=== PATIENT | female | born 1975 | race Caucasian/White ===

== ENCOUNTER 2020-03-18 12:36 | Outpatient (REF) | payer OTHER, SELFPAY ==
[2020-03-18 12:53] LABS: COVID-19 Test Negative (Negative)
== END 2020-03-18 12:37 | disposition home or self-care (01) ==
LOC: HO.LAB 12:36
PROVIDERS: Visit Provider Internal Medicine
DX: Z20.828 Contact with and (suspected) exposure to other viral communicable diseases (principal)
CPT/HCPCS: 87635

== ENCOUNTER 2020-03-26 07:08 | Outpatient (REF) | payer OTHER, SELFPAY ==
[2020-03-26 07:50] LABS: COVID-19 Test Negative (Negative)
== END 2020-03-26 07:09 | disposition home or self-care (01) ==
LOC: HO.LAB 07:08
PROVIDERS: Visit Provider Internal Medicine
DX: Z20.828 Contact with and (suspected) exposure to other viral communicable diseases (principal)
CPT/HCPCS: 87635

== ENCOUNTER → 2020-03-28 09:55 | Outpatient (REF) | payer OTHER, SELFPAY | LOC: HO.NUCMED 09:55 | PROVIDERS: PCP Internal Medicine; Visit Provider Podiatrist | DX: Z13.89 Encounter for screening for other disorder (principal) ==

== ENCOUNTER 2020-04-08 14:59 | Outpatient (REF) | payer OTHER, SELFPAY ==
--- NOTE | 2020-04-08 15:00 | MR_ITS ---
EXAMINATION: MR ANKLE WITHOUT CONTRAST, LEFT CLINICAL INFORMATION: Sharp pain in the left heel. Evaluate for stress fracture. COMPARISON: None TECHNIQUE: Multiplanar MR imaging was obtained to the left ankle without contrast on a 1.5 Elvia magnet. FINDINGS: ACHILLES TENDON: No tears or tendinosis. A small 5 x 8 x 3 mm ganglion cyst arises at the lateral margin of the Achilles tendon insertion. OTHER TENDONS: Intact. LIGAMENTS: Intact. BONE AND ARTICULAR CARTILAGE: Normal marrow signal. Cartilage is well preserved. No talar osteochondral lesions. JOINT FLUID AND SOFT TISSUES: No joint effusion. Subcutaneous soft tissues are normal. PLANTAR FASCIA: Borderline thickened (5 mm) with minimal surrounding edema signal. SINUS TARSI AND TARSAL TUNNEL: Normal. MR/MR ankle LT wo con IMPRESSION: Very mild plantar fasciitis at the origin of the central band. No fracture or stress reaction.
== END 2020-04-08 15:00 | disposition home or self-care (01) ==
LOC: HO.MRI 14:59
PROVIDERS: Visit Provider Podiatrist
DX: M79.672 Pain in left foot (principal)
CPT/HCPCS: 73721

== ENCOUNTER 2020-04-26 07:44 | Outpatient (REF) | payer OTHER, SELFPAY ==
[2020-04-26 08:38] LABS: COVID-19 Test Negative (Negative)
== END 2020-04-26 07:45 | disposition home or self-care (01) ==
LOC: HO.EMPCOV 07:44
PROVIDERS: Visit Provider Internal Medicine
DX: Z20.828 Contact with and (suspected) exposure to other viral communicable diseases (principal)
CPT/HCPCS: 87635; C9803

== ENCOUNTER 2020-06-18 12:08 | Outpatient (REF) | payer OTHER, SELFPAY ==
[2020-06-18 12:41] LABS: COVID-19 Test Negative (Negative)
== END 2020-06-18 12:09 | disposition home or self-care (01) ==
LOC: HO.LAB 12:08
PROVIDERS: PCP Internal Medicine; Visit Provider Internal Medicine
DX: Z20.822 Contact with and (suspected) exposure to COVID-19 (principal)
CPT/HCPCS: 36415; 87635

== ENCOUNTER 2020-07-03 13:53 | Outpatient (REF) | payer OTHER, SELFPAY ==
[2020-07-03 14:23] LABS: COVID-19 Test Negative (Negative)
== END 2020-07-03 13:54 | disposition home or self-care (01) ==
LOC: HO.EMPCOV 13:53
PROVIDERS: PCP Internal Medicine; Visit Provider Internal Medicine
DX: Z20.822 Contact with and (suspected) exposure to COVID-19 (principal)
CPT/HCPCS: 36415; 87635

== ENCOUNTER 2021-03-08 15:00 | Outpatient (RCR) | payer OTHER, SELFPAY ==
--- NOTE | 2021-04-04 14:08 | MHC.PT.DC ---
[facility] [place] Office [place] [facility] [place] [facility] [address] Noni Hurley [address] [phone] F: [phone] F: [phone] F: [phone] F: [phone] Physical Therapy Discharge Report Diagnosis: This is a 45 yo female presenting to skilled PT with a script for plantar fasciitis. Date of Surgery: Date of Evaluation: 02/15/21 Date of Discharge: 04/04/21 Treatments to Date: 2 Cancellations to Date: 0 No Shows to Date: 0 Discharge Status: Patient Elected to Stop Discharge Summary: 04/04: Called patient about continuing PT, reports that she is getting another surgery and wants to hold PT. 03/08: swelling not improved with time, ice or elevation. Stim and soft tissue was non productive for decrease in swelling. KT has been helpful. Avoided weight bearing and extreme stretching today and will assess response next session. 02/23: Patient seeing surgeon today after PT. After tx patient reported feeling better. She has a hard time feeling a stretch in the fascia and heel but the best option was on the wedge with a small towel under the toes. Notable atrophy in L gastrocs, provided heel raises for HEP. She would benefit from continued manual work and calf strengthening. This is a 45 yo female presenting to skilled PT with a script for plantar fasciitis. This patient comes to PT s/p surgery on 12/21 on the L PF. Surgery was the Sullivan procedure done by Dr. Farrell ([facility]). She returns to surgeon tomorrow for follow up. Following the surgery was in a walking boot for 2 months (today being the first day out of the boot and in normal shoe). Additionally she wears a splint with ice at night. Patient reporting pain along the 5th met, heel and arch. Her pain is now described as achy, tightness and burning. She has pain at rest and with weightbearing. Prior to surgery she was having ongoing pain for over a year. Assessment reveals pain that ranges up to a 6/10. She demos decreased L ankle ROM, decreased L ankle strength, impaired gait pattern, impaired ankle and forefoot joint mobility, tender to palpate at plantar fascia/arch as well as gross functional decline with weightbearing and walking. She is a good candidate for skilled PT 2x/wk for 5wks. Electronically signed by: Malu Hurt PT Please sign and return to therapist. Thank you for your referral.
== END 2021-04-04 14:08 | disposition home or self-care (01) ==
LOC: HO.PTCHIC 15:00
PROVIDERS: PCP Internal Medicine; Visit Provider Podiatrist
DX: M72.2 Plantar fascial fibromatosis (principal)
CPT/HCPCS: 97014; 97110; 97140; 97161

== ENCOUNTER 2021-05-04 10:21 | Day surgery (SDC) | payer OTHER, SELFPAY ==
[2021-04-25 14:49] VITALS: BMI 30.9
--- NOTE | 2021-05-02 16:53 | HP_ITS ---
DATE OF SERVICE: 05/04/2021 PREOPERATIVE DIAGNOSIS: Plantar fasciitis, left foot. PLANNED PROCEDURE: Endoscopic plantar fasciotomy, left foot. PAST MEDICAL HISTORY: Anxiety disorder; hip, back, and knee pain; cancer; chickenpox; headaches; migraines; hypertension. CURRENT MEDICATIONS: Amlodipine, benazepril, omeprazole. SURGICAL HISTORY: Lumpectomy, hysterectomy, and left [place] plantar fasciotomy on 12/21/2020. FAMILY HISTORY: Diabetes, hypertension. SOCIAL HISTORY: The patient is a current smoker, 5 or less cigarettes a day. Denies any other tobacco use. Relates occasional alcohol use. No illicit drug use. She works at [employer]. ALLERGIES: TO ADVIL, ALEVE, MOTRIN, GABAPENTIN, AND NSAIDS. HOSPITALIZATIONS: Denies. REVIEW OF SYSTEMS: Within normal limits. HISTORY OF PRESENT ILLNESS: This is a 46-year-old female who has had persistent plantar fasciitis noted to the left foot for several months that is unchanged since her surgical procedure of a Ell[place] left foot plantar fasciotomy on 12/21 of this year. The patient has tried multiple conservative as well as surgical interventions including rest, stretching, ice, inner soles orthotics, change in shoes and night splint, cortisone injections, a walking cast boot, massage, and Ell[place] plantar fasciotomy without any significant relief. The patient's states the pain has been getting progressively worse over time. PHYSICAL EXAMINATION: GENERAL: Reveals a pleasant, alert, well-nourished, well-developed, well-hydrated individual who presents with no acute distress. She is oriented x3. NEUROLOGICAL: Exam reveals intact sensorium. Pain sensation is normal. Vibratory sensation is intact. Pinprick sensation is normal. Denies any anesthesias, burning, paresthesias, or tingling. VASCULAR EXAM: DP and PT pulses are 3/4 bilaterally. Capillary refill is immediate to all digits. SKIN: Temperature, elasticity, and turgor is normal. Pigmentation is normal. There is no edema. DERMATOLOGICAL: Exam reveals normal texture, elasticity, and turgor. There are no masses. Interspaces are clear. On inspection of the heel, there is significant pain to the left foot. Pain on palpation to the plantar fascia at the medial and central bands, intrinsic musculature, infracalcaneal bursa, and medial calcaneal tubercle. No pain to the posterior superior heel, Achilles tendon, bursa, sinus tarsi Perineals or with lateral compression of heel, subtalar joint range of motion, calor, or ecchymosis. ORTHOPEDIC EXAM: Muscle strength is 5/5 in a symmetrical fashion. Gait is antalgic. Foot morphology, there is pes planus deformity with decreased ankle joint dorsiflexion range of motion with knee extended of the left foot. PLAN: Surgical procedures to treat the patient's foot problem were discussed. We did review the risks of the procedure as well as not having the procedure, the potential surgical complications which are including, but not limited to pain, swelling, bleeding, scarring, numbness, infection, delayed, nonunion, or nonhealing, failure of the procedure, recurrence, need for further surgery, as well as loss of toe, foot, life, or limb. Discussed use of local and IV anesthesia and usual postoperative course. No guarantees were given. The patient verbally indicated full understanding of the above conversation and any other questions were answered to their satisfaction. We discussed on performing a left foot endoscopic plantar fasciotomy based on the patient's medical compliance, social history, physical exam. We also discussed potential lateral foot pain after the surgery. The patient states that she wants to proceed with surgical treatment. She will obtain preoperative labs as well as medical clearance for surgery and anesthesia. She is aware to stop any and all blood thinners at least 1 week prior to surgery and may not be allowed to drive during a portion of the postoperative period and not to utilize any smoking tobacco products at least 1 month prior and 3 months postoperatively. The patient was given a prescription for narcotic pain medication. She can half fill the prescription and use for shortest duration of time. The patient will be weightbearing as tolerated in a cast boot or surgical shoe and use crutches as needed for any ambulation. Jeanne Rodriguez DPM LP/AMBER / [id number] LUTHER
--- NOTE | 2021-05-03 13:03 | HO.ANESPROP2 ---
Documented by User: Jasmin Francois NP 05/03/21 13:05 HPI - Anesthesia Eval Consult details Narrative: 46yo F for Left Plantar Fasciotomy Endoscopic PCP cleared PMFSH Past Medical History Medical History Anxiety Breast cancer COVID-19 vaccine series completed Elevated cholesterol GERD (gastroesophageal reflux disease) HTN (hypertension) Migraine Surgical History Surgical History History of breast lump/mass excision Hx of appendectomy Hx of breast surgery Hx of hysterectomy Hx of tubal ligation Social History Social History (Updated 05/04/21 @ 11:56 by Dina Francisco MD) Patient Tobacco Use Status: Current everyday Tobacco user Tobacco use type: Cigarette Smoked in Last 30 Days: Yes Use of substances other than those prescribed or required for medical reasons: No Advance Directives: No Advance Directives Information Provided: Yes Advance Directives on File: No Meds Allergies Allergy/AdvReac Type Severity Reaction Status Date / Time atorvastatin Allergy Severe severe Verified 05/04/21 10:45 body aches NSAIDS (Non-Steroidal Allergy Intermediate Hives Verified 05/04/21 10:45 Anti-Inflamma [NSAIDS (NON-STEROIDAL ANTI-INFLAMMA] Home Medications Medication Instructions Recorded Confirmed Last Taken Type amlodipine 5 mg-benazepril 20 mg 1 cap PO DAILY 04/25/21 04/25/21 Unknown History capsule cetirizine 10 mg tablet 10 mg PO DAILY 04/25/21 04/25/21 Unknown History lorazepam 1 mg tablet 1 tab PO BID 04/25/21 04/25/21 Unknown History nicotine 7 mg/24 hr daily 1 patch TOPICAL BEDTIME 04/25/21 04/25/21 Unknown History transdermal patch omeprazole 20 mg capsule,delayed 1 cap PO DAILY 04/25/21 05/04/21 05/04/21 07:00 History release rosuvastatin 5 mg tablet 1 tab PO DAILY 04/25/21 04/25/21 Unknown History tramadol 50 mg tablet 1 tab PO TID PRN 04/25/21 04/25/21 Unknown History varenicline 1 mg tablet 1 mg PO BID 04/25/21 04/25/21 Unknown History Exam Exam Date and Time: May 03, 2021 1303 Height,Weight and Vital Signs: Height 5 ft 8 in Weight 92.1 kg Pertinent Lab Results Pertinent Lab Results: Labs from outside facility 04/2021 CBC and CMP WNL Narrative Narrative: EKG 12/2020 NSR @ 92 ? LAE T wave abnormality (old) Assessment and Plan Assessment Anesthesia Assessment: Chart Reviewed Documented by User: Dina Francisco MD 05/04/21 11:58 PMFSH Past Medical History Medical History Anxiety Breast cancer COVID-19 vaccine series completed Elevated cholesterol GERD (gastroesophageal reflux disease) HTN (hypertension) Migraine Family History Family history of problems with anesthesia: No Surgical History Surgical History History of breast lump/mass excision Hx of appendectomy Hx of breast surgery Hx of hysterectomy Hx of tubal ligation History of Problems with Anesthesia: No Social History Social History (Updated 05/04/21 @ 11:56 by Dina Francisco MD) Patient Tobacco Use Status: Current everyday Tobacco user Tobacco use type: Cigarette Smoked in Last 30 Days: Yes Use of substances other than those prescribed or required for medical reasons: No Advance Directives: No Advance Directives Information Provided: Yes Advance Directives on File: No Meds Allergies Allergy/AdvReac Type Severity Reaction Status Date / Time atorvastatin Allergy Severe severe Verified 05/04/21 10:45 body aches NSAIDS (Non-Steroidal Allergy Intermediate Hives Verified 05/04/21 10:45 Anti-Inflamma [NSAIDS (NON-STEROIDAL ANTI-INFLAMMA] Home Medications Medication Instructions Recorded Confirmed Last Taken Type amlodipine 5 mg-benazepril 20 mg 1 cap PO DAILY 04/25/21 04/25/21 Unknown History capsule cetirizine 10 mg tablet 10 mg PO DAILY 04/25/21 04/25/21 Unknown History lorazepam 1 mg tablet 1 tab PO BID 04/25/21 04/25/21 Unknown History nicotine 7 mg/24 hr daily 1 patch TOPICAL BEDTIME 04/25/21 04/25/21 Unknown History transdermal patch omeprazole 20 mg capsule,delayed 1 cap PO DAILY 04/25/21 05/04/21 05/04/21 07:00 History release rosuvastatin 5 mg tablet 1 tab PO DAILY 04/25/21 04/25/21 Unknown History tramadol 50 mg tablet 1 tab PO TID PRN 04/25/21 04/25/21 Unknown History varenicline 1 mg tablet 1 mg PO BID 04/25/21 04/25/21 Unknown History Exam Height,Weight and Vital Signs: Height 5 ft 8 in Weight 92.1 kg Vital Signs Temp Pulse Resp BP Pulse Ox 05/04/21 10:58 98.7 F 82 16 131/85 99 Airway Mallampati Class: II TM Dist: >3cm Neck ROM: Full Loose/Missing/Broken Teeth: Yes (Extractions) Heart: RRR Lungs: CTAB Assessment and Plan Assessment Anesthesia Assessment: Anesthesia Plan Discussed Final Anesthetic Review Family History of Problems with Anesthesia: No History of Problems with Anesthesia: No NPO: Yes ASA Class: II Final Preanesthetic Review: No Changes in Pt Med Stat, Meds/Allgs Chart Reviewed, Consent Obtained/Reviewed and Anes Risks/Benef Reviewed Patient Risk: Low Procedure Risk: Low Assessment/Block/Sedation in SS: Assess/Block/Sedation-SS Anesthetic Plan Anesthetic Plan: GA Disposition: Standard PACU
[2021-05-04 10:58] VITALS: BP 131/85; PULSE 82; RESP 16; TEMP 37.1; O2SAT 99
[2021-05-04] MEDS: Lactated Ringers 1,000 ML 100 ML IVCONT (11:15)
--- NOTE | 2021-05-04 12:10 | MHC.SHP ---
Pre-Procedural Eval Section A Date of Service: 05/04/21 The patient is an INPATIENT: No Changes since office visit: No Cold of Flu in the past 2 weeks, No New Medical Problems, No Changes in Medication and No Patient answered all questions The History & Physical has been completed within 30 days and I have reviewed it.: Yes Section B Chief Complaint: plantar fascial fibromatosis Allergies: Allergies Allergy/AdvReac Type Severity Reaction Status Date / Time atorvastatin Allergy Severe severe Verified 05/04/21 10:45 body aches NSAIDS (Non-Steroidal Allergy Intermediate Hives Verified 05/04/21 10:45 Anti-Inflamma [NSAIDS (NON-STEROIDAL ANTI-INFLAMMA] Plan I have reviewed the history and physical and performed a pertinent physical examination on my patient. No changes have occurred unless specified.
--- NOTE | 2021-05-04 12:57 | PM.OP ---
Brief Operative Note Date of Service: 05/04/21 Pre-op diagnosis: Plantar fasciitis left foot Post-op diagnosis: same Procedure: Left endoscopic plantar fasciotomy Implants: None Surgeon: Jeanne Rodriguez Anesthesia: GLMA and local Was an Account Support Specialist used for this Procedure?: Yes Account Support Specialist: Ryan Parsons Estimated blood loss (mL): 1 Tourniquet time (min): 12 Condition: stable Disposition: PACU
[2021-05-04 13:05] VITALS: BP 108/67; PULSE 81; RESP 16; TEMP 36.5; O2SAT 97
[2021-05-04 13:24] VITALS: BP 125/79; PULSE 82; RESP 16; TEMP 36.4; O2SAT 97
[2021-05-04] MEDS: Acetaminophen 325 MG TABLET 650 MG PO (13:32)
[2021-05-04] MEDS: oxyCODONE HCl Immed Release 5 MG TABLET PO (13:32)
[2021-05-04 13:43] VITALS: BP 134/76; PULSE 74; RESP 16; TEMP 36.5; O2SAT 97
--- NOTE | 2021-05-09 11:47 | OP_ITS ---
SURGEON: Jeanne Rodriguez DPM PREOPERATIVE DIAGNOSIS: Plantar fasciitis, left foot. POSTOPERATIVE DIAGNOSIS: Plantar fasciitis, left foot. PROCEDURE PERFORMED: Endoscopic left plantar fasciotomy. ESTIMATED BLOOD LOSS: Less than 1 mL. COMPLICATIONS: None. ANESTHESIA: General with local consisting of 2% lidocaine plain and 0.5% Marcaine plain. ASSISTANTS: Ryan Parsons DPM. SPECIMENS: None HEMOSTASIS: Pneumatic ankle tourniquet set at 215 mmHg for 12 minutes. INDICATIONS FOR SURGERY: The patient has had painful plantar fasciitis to the left foot for significant period of time. The patient has failed multiple conservative modalities as well as a [place] plantar fasciotomy earlier this year. Pain has been getting progressively worse to the left foot. It was discussed with the patient to the above-mentioned surgery, including risks, benefits, and possible complications. No guarantees were given, and written and oral informed consent was obtained. DESCRIPTION OF PROCEDURE: The patient was brought into the operating room, placed on the operating table in the supine position. 2 g of cefazolin was administered as a prophylactic preoperative antibiotic. The left foot was anesthetized. Hand was scrubbed, prepped, and draped in a sterile manner. Attention was directed to the plantar aspect of the left foot on the medial aspect. A vertical incision was made about 5 cm from the posterior heel and 2 cm from the weightbearing surface. The incision was then deepened down using a Vergas elevator across the plantar aspect of the plantar fascia to the lateral aspect of the foot. The Vergas was removed. A cannula and trocar were then introduced. A stab incision was made on the lateral aspect of the foot to allow the cannula and trocar to transversely cut across the plantar aspect of the foot. The trocar was removed. A camera was placed through the lateral cannula and a guide probe was then placed in the medial aspect of the cannula to assess the placement of the blade. The guide probe was removed. First, a hook blade was used to cut midway of the central band and complete medial band of the plantar fascia. This was then done again with a triangular blade. Release was felt of the plantar fascia and was also visualized on the camera. The camera and blade were removed. The area was irrigated with normal sterile saline. The trocar was reintroduced and the cannula and trocar were removed in total from the plantar fascia and the left foot. The medial and lateral incisions were then reapproximated with 4-0 nylon. A postoperative injection of 5 mL of 0.5% Marcaine plain was administered to the left foot and left foot was then dressed with Betadine soaked gauze, 4x4s, fluffs, Kerlix, cast padding, and an Lacho bandage. The pneumatic ankle tourniquet was deflated. Prompt capillary refill was noted to all 5 digits. The patient tolerated procedure and anesthesia well. She was transferred to the recovery room with vital signs stable and vascular status at preoperative levels. Following a period of postoperative recovery, she will be discharged home with written and oral postoperative instructions. The patient is to be weightbearing as tolerated in a cast boot with crutches or a walker as needed and to follow up in my office for all postoperative followup care and if any problems arise. Jeanne Rodriguez DPM LP/AMBER / [id number] MTDD
== END 2021-05-04 14:11 | disposition home or self-care (01) ==
PROVIDERS: PCP Internal Medicine; Visit Provider Podiatrist
PROC: (CPT 29893; principal; 2021-05-04 12:10)
DX: M72.2 Plantar fascial fibromatosis (principal); I10 Essential (primary) hypertension; F41.1 Generalized anxiety disorder; G43.909 Migraine, unspecified, not intractable, without status migrainosus; E78.00 Pure hypercholesterolemia, unspecified; Z79.899 Other long term (current) drug therapy; Z88.8 Allergy status to other drugs, medicaments and biological substances; F17.210 Nicotine dependence, cigarettes, uncomplicated; Z85.3 Personal history of malignant neoplasm of breast
CPT/HCPCS: 29893; J0690; J1100; J2250; J2370; J2405; J3010

== ENCOUNTER 2021-09-05 10:53 | Outpatient (REF) | payer OTHER, SELFPAY ==
[2021-09-05 11:18] LABS: Binax Now Covid-19 Ag Negative (Negative)
[2021-09-05 11:19] LABS: Binax Internal Control QC Valid
[2021-09-05 13:59] LABS: Hematocrit 42.7 % (37.0-47.0); Hemoglobin 14.8 g/dl (12.0-16.0); Mean Corpuscular HGB Conc 34.7 g/dl (31.0-35.0); Mean Corpuscular Hemoglobin 32.5 pg (27.0-33.0); Mean Corpuscular Volume 93.6 fL (80.0-98.0); Mean Platelet Volume 10.5 fL (9.4-12.3); Platelet Count 338 X10*3/uL (160-400); Red Blood Count 4.56 X10*6/uL (4.20-5.50); Red Cell Distribution Width 13.3 % (11.0-16.0); White Blood Count 7.9 X10*3/uL (4.8-10.8)
[2021-09-05 14:18] LABS: Alanine Aminotransferase 27 U/L (0-31); Albumin Level 4.7 g/dL (3.5-5.0); Alkaline Phosphatase 93 U/L (39-117); Anion Gap 12 (12-20); Aspartate Amino Transferase 16 U/L (5-31); Bilirubin Direct 0.3 mg/dL (0.0-0.5); Bilirubin Total 0.8 mg/dL (0.0-1.0); Blood Urea Nitrogen 9 mg/dL (9-16); C Reactive Protein 0.36 mg/dL (< or = 0.50); Calcium 10.2 mg/dL (8.4-10.2); Carbon Dioxide 28 mmol/L (22-29); Chloride 102 mmol/L (96-108); Estimated Glomerular Filt Rate > 60; Glucose Random 104 mg/dL (60-115); Potassium 4.4 mmol/L (3.3-5.1); Sodium 138 mmol/L (135-145); Total Protein 7.5 g/dL (6.5-8.0)
[2021-09-05 14:30] LABS: Thyroid Stimulating Hormone 1.04 uIU/mL (0.32-4.0)
== END 2021-09-05 10:54 | disposition home or self-care (01) ==
LOC: HO.HMGCLDS 10:53
PROVIDERS: Visit Provider Internal Medicine
DX: M79.10 Myalgia, unspecified site (principal); J06.9 Acute upper respiratory infection, unspecified
CPT/HCPCS: 80048; 80076; 82550; 84443; 85027; 86140